=== PATIENT | female | born 1975 | race African-American/Black ===

== ENCOUNTER 2020-05-19 19:55 | Emergency (ER) | payer OTHER ==
[2020-05-19] MEDS ORDERED: NORCO 5-325 TA1 EACH PO (20:58)
== END 2020-05-19 21:20 | disposition home or self-care (01) ==
LOC: FER 19:55
DX: S86.211A Strain of muscle(s) and tendon(s) of anterior muscle group at lower leg level, right leg, initial encounter (principal); S70.01XA Contusion of right hip, initial encounter; S60.222A Contusion of left hand, initial encounter; Z88.0 Allergy status to penicillin; V43.52XA Car driver injured in collision with other type car in traffic accident, initial encounter; Y92.410 Unspecified street and highway as the place of occurrence of the external cause
CPT/HCPCS: 71045; 73130; 73502; 73564

== ENCOUNTER 2020-10-29 22:44 | Emergency (ER) | payer OTHER ==
[~2020-10-29 22:44] MED LIST: NORCO 5-325 TA1 EACH PO
[2020-10-29 23:38] LABS: BASOPHIL 0.4 % (0-2); HCT 41.4 % (37.0-47.0); HGB 14.2 g/dl (12.5-16.0); LYMPHOCYTE 27.6 % (15-48); MCH 30.8 pg (25.0-31.0); MCHC 34.3 g/dL (32.0-36.0); MCV 89.8 fL (78.0-100.0); MONOCYTE 9.1 % (0-12); MPV 10.2 fL (6.0-9.5); NEUTROPHIL 62.7 % (41-80); PLT 259 K/uL (150-400); RBC 4.61 M/uL (4.20-5.40); RDW 12.6 % (11.5-14.0)
[2020-10-30 00:15] LABS: ALBUMIN 3.3 g/dL (3.4-5.0); BILIRUBIN - TOTAL 0.7 mg/dL (0.2-1.0); BUN/CREAT RATIO (CALC) 13.2 RATIO; CREATININE 0.91 mg/dL (0.51-0.95); GLOBULIN (CALCULATION) 4.9 g/dL; POTASSIUM 3.2 mmol/L (3.5-5.1); TOTAL PROTEIN 8.2 g/dL (6.4-8.2)
[2020-10-30 01:29] LABS: BILIRUBIN 2+ mg/dL (NEGATIVE); BLOOD TRACE-INTACT Ery/uL (NEGATIVE); CLARITY CLEAR (CLEAR); COLOR YELLOW (YELLOW); GLUCOSE (U) NORMAL (NORMAL); LEUKOCYTES NEGATIVE Leu/uL (NEGATIVE); NITRITE NEGATIVE (NEGATIVE); PROTEIN 2+ mg/dL (NEGATIVE); SPECIFIC GRAVITY 1.015 (1.001-1.030); pH 6.5 (5.0-9.0)
[2020-10-30 01:37] LABS: BACTERIA 1+; MUCOUS TRACE
[2020-10-30] MEDS ORDERED: MEDROL 4MG DOSEP4 MG PO (09:20)
[2020-10-30] MEDS ORDERED: ONDANSETRON ODT4 MG PO (09:20)
== END 2020-10-30 09:30 | disposition home or self-care (01) ==
LOC: FER 22:44
PROVIDERS: Emergency Medicine
DX: U07.1 COVID-19 (principal); E86.0 Dehydration; Z88.0 Allergy status to penicillin; Z79.899 Other long term (current) drug therapy
CPT/HCPCS: 36415; 71045; 71275; 80053; 81001; 84484; 85025; 85379; 93005; J2405; J2930; J7030; Q9967; U0002